=== PATIENT | female | born 1950 | race Caucasian/White ===

== ENCOUNTER 2020-12-22 11:57 | Emergency (ER) | payer MEDICARE, SELFPAY ==
--- NOTE | 2020-12-22 11:59 | ED.WOUNDLAC ---
HPI - Wound/Laceration General Chief Complaint: Skin/Abscess/Foreign Body Stated Complaint: Finger lac Time Seen by Provider: 12/22/20 11:59 Source: patient and RN notes reviewed History of Present Illness HPI narrative: Patient is 70-year-old female who presents the urgent care with complaints of a laceration to the left index finger. Patient states that she got it caught underneath some landscaping bricks just prior to arrival. Denies of any other injuries or complaints. No acute distress noted. Patient aware of the plan of care. Some parts of this dictation were generated by voice recognition software and may contain typographical and/or grammatical inaccuracies. Related Data Home Medications Medication Instructions Recorded Confirmed rosuvastatin 10 mg PO DAILY 12/22/20 12/22/20 Allergies Allergy/AdvReac Type Severity Reaction Status Date / Time Sulfa (Sulfonamide Allergy Intermediate HIVES Verified 11/13/09 07:34 Antibiotics) Review of Systems Review of Systems: CONSTITUTIONAL: Denies fever, chills, or sweats. EYES: Denies visual changes, redness, or discharge. ENT: Denies rhinorrhea, congestion, sore throat, or otalgia. CARDIOVASCULAR: Denies chest pain, palpitations, or edema. RESPIRATORY: Denies cough or dyspnea. GASTROINTESTINAL: Denies abdominal pain, nausea, vomiting, or diarrhea. GENITOURINARY: Denies dysuria or hematuria. SKIN: Reports of an laceration to the left index finger MUSCULOSKELETAL: Denies back pain, joint pain, or myalgia. NEUROLOGIC: Denies headache, numbness, or weakness. All other systems reviewed are negative, except as documented in HPI. PMFSH Comments At the time of my signature, I reviewed and agree with the nursing past medical, surgical, social, and family history. There is no relevant family history pertinent to the patient complaint. Exam Narrative: GENERAL: This is a well-nourished, well-developed patient, in no apparent distress. HEAD: normocephalic, atraumatic. EYES: PERRL. Sclera clear/white. Vision is grossly intact. EARS: External ears normal NOSE: External nose normal with no obvious nasal discharge, nares without redness, no rhinorrhea. THROAT: Mucous membranes moist NECK: Neck supple CARDIOVASCULAR: Regular rate and rhythm without murmurs, gallops, or rubs. RESPIRATORY: Clear to auscultation. Breath sounds equal bilaterally. No wheezes, rales, or rhonchi. SKIN: 1 cm skin avulsion to the tuft of the left index finger. Bleeding controlled. Warm, intact with no suspicious lesions or rash, good texture and turgor. NEURO: awake, alert, and oriented to person, place and time. There were no obvious focal neurologic abnormalities. EXTREMITIES: No clubbing, cyanosis, or edema. Course Vital Signs Vital signs: Vital Signs Temperature 97.6 F 12/22/20 12:07 Pulse Rate 71 12/22/20 12:07 Respiratory Rate 16 12/22/20 12:07 Blood Pressure 128/71 12/22/20 12:07 Pulse Oximetry 98 12/22/20 12:07 Temperature 97.6 F 12/22/20 12:07 Pulse Rate 71 12/22/20 12:07 Respiratory Rate 16 12/22/20 12:07 Blood Pressure 128/71 12/22/20 12:07 Pulse Oximetry 98 12/22/20 12:07 Reviewed MDM - Wound/Laceration MDM Narrative Medical decision making narrative: Advised the patient to keep the wound clean with plain Dial soap and water or the given technicare cleanser. Keep it covered with Neosporin and a bandage. If you develop any increase in swelling, pain or streaking up the finger or hand?go to the emergency room. These wounds tend to take a while to heal but do not tend to require any intervention. Do not put peroxide, alcohol or salve on the injury. Follow-up with your PCP within 2 to 5 days for worsening or failure to improve. Differential Diagnosis Differential diagnosis: Likely laceration, abscess and avulsion of skin Critical Care Time Critical Care Time Critical Care Time: No Discharge Plan Discharge Clinical Impression: Avulsion of s
[2020-12-22 12:07] VITALS: BP 128/71; PULSE 71; RESP 16; TEMP 36.4; O2SAT 98
== END 2020-12-22 12:25 | disposition home or self-care (01) ==
PROVIDERS: Emergency Provider Nurse Practitioner Family; PCP Family Medicine
DX: S61.201A Unspecified open wound of left index finger without damage to nail, initial encounter (principal); X58.XXXA Exposure to other specified factors, initial encounter; E78.00 Pure hypercholesterolemia, unspecified
CPT/HCPCS: 99212; G0463